=== PATIENT | female | born 1980 ===

== ENCOUNTER 2017-02-20 01:56 | Emergency (ER) | payer SELFPAY ==
[2017-02-20 02:21] VITALS: BP 161/93
== END 2017-02-20 08:35 | disposition left against medical advice (07) ==
LOC: ED 01:56
DX: I10 Essential (primary) hypertension (principal); Z53.21 Procedure and treatment not carried out due to patient leaving prior to being seen by health care provider
CPT/HCPCS: 93005; 93010